=== PATIENT | male | born 1955 | race Caucasian/White ===

== ENCOUNTER 2019-05-31 07:36 | Day surgery (SDC) | payer BC ==
[2019-05-29 11:12] VITALS: BMI 41.0
[~2019-05-31 07:36] MED LIST: LACTATED RINGERS 1,000 ML IV SCH; LIDOCAINE 1% 20 ML VIAL (10MG/ML) FOR IV START INTRADERMA PRN
[2019-05-31 08:18] VITALS: TEMP 97.4
[2019-05-31] MEDS ORDERED: PROPOFOL 10 MG/ML 20 ML VIAL IV ONE (08:52)
--- NOTE | 2019-05-31 09:23 | P.PCN ---
Date of Procedure: 05/31/19 Procedure(s) Performed: BRIEF HISTORY: Patient is a 63-year-old pleasant 8 male, scheduled for an elective colonoscopy as a part of evaluation of intermittent right sided abdominal pain and abnormal CAT scan that showed severe thickening of the cecum as well as a right colon and the terminal ileum . Also performed as positive for colonic mass in the right colon could not be excluded. His and scheduled for colonoscopy to evaluate further. Patient did have a colonoscopy a year ago by and there was a 4 cm soft tissue mass identified and according the patient's biopsies were negative. PROCEDURE PERFORMED: Colonoscopy with snare polypectomy PREOPERATIVE DIAGNOSIS: Follow-up right colonic lesion noted a year ago and abdominal pain. IV sedation per Anesthesia. PROCEDURE: After informed consent was obtained, the patient, was brought into the endoscopy unit. IV sedation was administered by Anesthesia under continuous monitoring. Digital rectal examination was normal. Initially the Olympus CF-160 flexible video colonoscope was then inserted in the rectum, gradually advanced into the cecum without any difficulty. Careful examination was performed as the scope was gradually being withdrawn. Ileocecal valve and the appendiceal orifice were visualized and appeared normal. Prep was excellent. Mucosa of the cecum appeared normal. In the ascending colon just proximal to the ileocecal valve there was a 4 cm polypoid mass identified with smooth margins and appeared more submucosal in nature rather than a mucosal lesion. It was broad-based and part of this was removed by snare polypectomy. Rest of the ascending colon, transverse colon, descending colon, sigmoid colon, and rectum appeared normal. Retroflexion was performed in the rectum and no lesions were seen. The patient tolerated the procedure well. IMPRESSION: 4 cm broad-based smooth polypoid lesion in the ascending colon just proximal to the ileocecal valve suspicious for a submucosal lesion versus polyp , status post partial snare polypectomy (complete polypectomy not done) Rest of the colon appeared normal RECOMMENDATIONS: Findings of this examination were discussed with the patient as well as a family. At this time will await the biopsy results. He'll be seen in office in a week and based on the results will consider if he needs any surgical intervention..
[2019-05-31 09:37] VITALS: BP 123/76; PULSE 58; RESP 20
== END 2019-05-31 10:00 | disposition home or self-care (01) ==
LOC: ORWHC2ENDO 07:36
PROVIDERS: ATTEND Internal Medicine Gastroenterology
DX: C7A.022 Malignant carcinoid tumor of the ascending colon (principal); I10 Essential (primary) hypertension; K21.9 Gastro-esophageal reflux disease without esophagitis; Z87.891 Personal history of nicotine dependence; Z79.899 Other long term (current) drug therapy
CPT/HCPCS: 88305; 88342; 88341; 45385; J2704

== ENCOUNTER → 2019-08-07 | Outpatient (CLI) | payer BC ==
[2019-08-07 11:06] LABS: Basophils % (A) 1 %; Eosinophils # (A) 0.1 k/uL (0-0.7); Eosinophils % (A) 1 %; HCT 47.1 % (39.0-53.0); HGB 15.9 gm/dL (13.0-17.5); Lymphocytes # (A) 1.5 k/uL (1.0-4.8); Lymphocytes % (A) 30 %; MCH 28.7 pg (25.0-35.0); MCHC 33.7 g/dL (31.0-37.0); MCV 85.2 fL (80.0-100.0); Mean Platelet Volume 8.8; Monocytes # (A) 0.3 k/uL (0-1.0); Monocytes % (A) 6 %; Neutrophils % (A) 61 %; Platelet Count 164 k/uL (150-450); RBC 5.53 m/uL (4.30-5.90); RDW 13.6 % (11.5-15.5); WBC 4.9 k/uL (3.8-10.6)
[2019-08-07 15:49] LABS: Anion Gap 7.7 mmol/L (4.00-12.00); Carbon Dioxide 26.3 mmol/L (21.6-31.8); Potassium 4.5 mmol/L (3.5-5.5)
== END | disposition home or self-care (01) ==
LOC: LABWHC1 10:03
PROVIDERS: ATTEND Surgery
DX: Z01.818 Encounter for other preprocedural examination (principal); D3A.029 Benign carcinoid tumor of the large intestine, unspecified portion
CPT/HCPCS: 36415; 80051; 85025; 93005

== ENCOUNTER → 2019-08-10 | Outpatient (CLI) | payer BC | END | disposition home or self-care (01) | LOC: LABWHC1 09:30 | PROVIDERS: ATTEND Surgery | DX: U07.1 COVID-19 (principal) | CPT/HCPCS: 87635 ==

== ENCOUNTER 2023-10-03 15:01 | Inpatient (IN) | payer MEDICARE, OTHER ==
--- NOTE | 2023-10-03 15:27 | ED ---
Chest Pain HPI - General Chief Complaint: Chest Pain Stated Complaint: Chest Pain,sob Time Seen by Provider: 10/03/23 15:05 Source: patient Mode of arrival: wheelchair Limitations: no limitations - History of Present Illness Initial Comments: 68-year-old male presents emergency department reporting chest pain. Describes it as a pressure in his chest, 5 out of 10. It started on Monday. States he was outside moving a feed block for deer when he had sudden onset of 10 out of 10 pain. States it made him feel short of breath. Patient states he rested for several hours afterwards and symptoms did not improve. [place] of going to the hospital up there he decided to come home. He has no history of cardiac disease. Denies lower extremity swelling. No calf pain. Denies history of DVT or PE. He does have history of hypertension, hyperlipidemia and diabetes. He denies having any type of cardiac workup in the past. No fevers, chills or cough. No other alleviating, precipitating or modifying factors - Related Data Home Medications Medication Instructions Recorded Confirmed Losartan Potassium 100 mg PO DAILY 05/29/19 10/03/23 Omeprazole 20 mg PO DAILY 05/29/19 10/03/23 atenoloL [Tenormin] 50 mg PO DAILY 05/29/19 10/03/23 Cholecalciferol [Vitamin D3 (25 25 mcg PO DAILY 10/03/23 10/03/23 Mcg = 1000 Iu)] Citalopram Hydrobromide 10 mg PO DAILY 10/03/23 10/03/23 [Citalopram HBr] Previous Rx's Medication Instructions Recorded Apixaban [Eliquis Starter Pack 5 - 10 mg PO DIRECTED 30 Days 10/06/23 (for VTE)] #1 each Aspirin 81 mg PO DAILY #30 tab 10/06/23 Atorvastatin [Lipitor] 40 mg PO HS #30 tab 10/06/23 amLODIPine [Norvasc] 10 mg PO HS #30 tab 10/06/23 Allergies Allergy/AdvReac Type Severity Reaction Status Date / Time No Known Allergies Allergy Verified 10/03/23 16:56 Review of Systems ROS Statement: Those systems with pertinent positive or pertinent negative responses have been documented in the HPI. ROS Other: All systems not noted in ROS Statement are negative. Past Medical History Past Medical History: Cancer, GERD/Reflux, Hypertension Additional Past Medical History / Comment(s): Colon Cancer currently, occ abd pain @ umbilicus. History of Any Multi-Drug Resistant Organisms: None Reported Past Surgical History: Hernia Repair, Orthopedic Surgery Additional Past Surgical History / Comment(s): RT KNEE SX. Lt shoulder. Rt ing Hernia. COLONOSCOPY/EGD Past Anesthesia/Blood Transfusion Reactions: No Reported Reaction Past Psychological History: No Psychological Hx Reported Smoking Status: Never smoker Past Alcohol Use History: Occasional Past Drug Use History: None Reported - Past Family History Mother Family Medical History: No Reported History General Exam Limitations: no limitations General appearance: alert, in no apparent distress Head exam: Present: atraumatic, normocephalic, normal inspection Eye exam: Present: normal appearance, PERRL, EOMI. Absent: scleral icterus, conjunctival injection, periorbital swelling ENT exam: Present: normal exam, mucous membranes moist Neck exam: Present: normal inspection. Absent: tenderness, meningismus, lymphadenopathy Respiratory exam: Present: normal lung sounds bilaterally. Absent: respiratory distress, wheezes, rales, rhonchi, stridor Cardiovascular Exam: Present: regular rate, normal rhythm, normal heart sounds. Absent: systolic murmur, diastolic murmur, rubs, gallop, clicks GI/Abdominal exam: Present: soft, normal bowel sounds. Absent: distended, tenderness, guarding, rebound, rigid Extremities exam: Present: normal inspection, full ROM, normal capillary refill. Absent: tenderness, pedal edema, joint swelling, calf tenderness Back exam: Present: normal inspection Neurological exam: Present: alert, oriented X3, CN II-XII intact Psychiatric exam: Present: normal affect, normal mood Skin exam: Present: warm, dry, intact, normal color. Absent: rash Course Vital Signs 10/03/23 10/03/23 10/03/23 15:02 15:12 16:00 Temperature 97.9 F Pulse Rate 90 80 76 Pulse Rate [ Pulse Oximetery ] Respiratory 18 18 Rate Blood Pressure 198/142 206/141 168/132 Blood Pressure [Right Arm] O2 Sat by Pulse 94 L 97 93 L Oximetry 10/03/23 10/03/23 10/03/23 17:00 18:00 19:00 Temperature Pulse Rate 77 75 76 Pulse Rate [ Pulse Oximetery ] Respiratory Rate Blood Pressure 162/117 134/105 155/125 Blood Pressure [Right Arm] O2 Sat by Pulse 92 L 94 L 94 L Oximetry 10/03/23 10/03/23 10/04/23 19:41 21:00 02:14 Temperature Pulse Rate 74 86 74 Pulse Rate [ Pulse Oximetery ] Respiratory 18 20 18 Rate Blood Pressure 156/117 148/110 139/99 Blood Pressure [Right Arm] O2 Sat by Pulse 93 L 95 93 L Oximetry 10/04/23 10/04/23 10/04/23 05:58 07:34 11:13 Temperature 97.4 F L Pulse Rate 71 Pulse Rate [ 73 71 Pulse Oximetery ] Respiratory 18 18 19 Rate Blood Pressure 122/86 Blood Pressure 165/113 139/121 [Right Arm] O2 Sat by Pulse 94 L 97 96 Oximetry 10/04/23 14:51 Temperature Pulse Rate Pulse Rate [ 72 Pulse Oximetery ] Respiratory 18 Rate Blood Pressure Blood Pressure 149/114 [Right Arm] O2 Sat by Pulse 97 Oximetry Chest Pain MDM - MDM Was pt. sent in by a medical professional or institution (Dr. PA, DIS[facility]OCKEY, urgent care, hospital, or prison...) When possible be specific @ -No Did you speak to anyone other than the patient for history (EMS, parent, family, police, friend...)? What history was obtained from this source @ -Spoke with patient's Did you review nursing and triage notes (agree or disagree)? Why? @ -I reviewed and agree with nursing and triage notes Were old charts reviewed (outside hosp., previous admission, EMS record, old EKG, old radiological studies, urgent care reports/EKG's, prison records)? Report findings @ -No old charts were reviewed Differential Diagnosis (chest pain, altered mental status, abdominal pain women, abdominal pain men, vaginal bleeding, weakness, fever, dyspnea, syncope, headache, dizziness, GI bleed, back pain, seizure, CVA, palpatations, mental health, musculoskeletal)? @ -Differential Chest Pain: Stable Angina, Unstable Angina, STEMI, NSTEMI Aortic Dissection, Pneumothorax, Musculoskeletal, Esophageal Spasm GERD, Cholecystitis, Pancreatitis, Zoster, this is not meant to be an all-inclusive list. EKG interpreted by me (3pts min.). @ -Yes and demonstrates sinus rhythm with a rate of 78. VT interval 181. QRS 98. QTc of 460. No acute ST segment elevation. Biphasic T wave in V2 and V3. Q waves in the inferior leads. X-rays interpreted by me (1pt min.). @ -Yes and demonstrates no acute process CT interpreted by me (1pt min.). @ -None done U/S interpreted by me (1pt. min.). @ -None done What testing was considered but not performed or refused? (CT, X-rays, U/S, labs)? Why? @ -CT was considered however will hold off as patient may have received arterial contrast from heart cath What meds were considered but not given or refused? Why? @ -None Did you discuss the management of the patient with other professionals (professionals i.e. , PA, [employer] [facility], lab, RT, psych nurse, director social, biomedical equipment specialist, teacher, chief security officer, case investigator)? Give summary @ -Spoke with Dr. Nagy Was smoking cessation discussed for >3mins.? @ -No Was critical care preformed (if so, how long)? @ -Yes, 45 minutes Were there social determinants of health that impacted care today? How? (Homelessness, low income, unemployed, alcoholism, drug addiction, transportation, low edu. Level, literacy, decrease access to med. care, skilled nursing, rehab)? @ -No Was there de-escalation of care discussed even if they declined (Discuss DNR or withdrawal of care, Hospice)? DNR status @ -No What co-morbidities impacted this encounter? (DM, HTN, Smoking, COPD, CAD, Cancer, CVA, ARF, Chemo, Hep., AIDS, mental health diagnosis, sleep apnea, morbid obesity)? @ -Hypertension, hyperlipidemia, diabetes Was patient admitted / discharged? Hospital course, mention meds given and route, prescriptions, significant lab abnormalities, going to OR and other pertinent info. @ -Upon arrival patient seen and evaluated in room 18. Thorough history and physical exam was performed. IV was established. Laboratory studies were conducted. Chest x-ray was performed. Patient does have elevated troponin. He is heparinized. Called and spoke with cardiology. Patient will be admitted to Dr. York who accepts admission Undiagnosed new problem with uncertain prognosis? @ -No Drug Therapy requiring intensive monitoring for toxicity (Heparin, Nitro, Insulin, Cardizem)? @ -Heparin Were any procedures done? @ -No Diagnosis/symptom? @ -Acute chest pain, NSTEMI Acute, or Chronic, or Acute on Chronic? @ -Acute Uncomplicated (without systemic symptoms) or Complicated (systemic symptoms)? @ -Complicated Side effects of treatment? @ -No Exacerbation, Progression, or Severe Exacerbation? @ -No Poses a threat to life or bodily function? How? (Chest pain, USA, ND, pneumonia, PE, COPD, DKA, ARF, appy, cholecystitis, CVA, Diverticulitis, Homicidal, Suicidal, threat to staff... and all critical care pts) @ -Yes as patient has elevated troponin Disposition Clinical Impression: Chest pain, Exertional dyspnea, Acute non-ST elevation myocardial infarction (NSTEMI) Disposition: ADMITTED IP TO THIS HOSP Is patient prescribed a controlled substance at d/c from ED?: No Time of Disposition: 17:19 Decision to Admit Reason: Admit from EC Decision Date: 10/03/23 Decision Time: 17:19
[2023-10-03 15:47] LABS: Basophils # (A) 0.1 k/uL (0-0.2); Basophils % (A) 1 %; Eosinophils # (A) 0.1 k/uL (0-0.7); Eosinophils % (A) 1 %; HGB 18.9 gm/dL (13.0-17.5); Lymphocytes % (A) 22 %; MCHC 32.9 g/dL (31.0-37.0); Mean Platelet Volume 10.1; Monocytes # (A) 0.7 k/uL (0-1.0); Monocytes % (A) 5 %; Neutrophils # (A) 9.6 k/uL (1.3-7.7); Neutrophils % (A) 70 %; Platelet Count 175 k/uL (150-450); RBC 6.77 m/uL (4.30-5.90); RDW 13.7 % (11.5-15.5); WBC 13.7 k/uL (3.8-10.6)
--- NOTE | 2023-10-03 15:58 | XR ---
EXAMINATION TYPE: XR chest 2V DATE OF EXAM: 10/03/2023 COMPARISON: NONE HISTORY: Shortness of breath TECHNIQUE: Frontal and lateral views of the chest are obtained. FINDINGS: Scattered senescent parenchymal changes noted. No evidence for infiltrate. No evidence for atelectasis. Heart size is stable. Mediastinal structures are stable and grossly unremarkable. No evidence for hilar prominence. Degenerative changes dorsal spine. IMPRESSION: 1. No evidence for acute pulmonary disease.
[2023-10-03 16:02] LABS: HCT 57.5 % (39.0-53.0)
[2023-10-03 16:07] LABS: Partial Thromboplastin Time 23.5 sec (22.0-30.0)
[2023-10-03 16:13] LABS: NT-Pro-B-Type Natriuretic Pept 4470 pg/mL
[2023-10-03] MEDS: NITROGLYCERIN SL TABS 0.4 MG TAB SUBLINGUAL STA (16:46)
[2023-10-03] MEDS: ASPIRIN 81 MG PO STA (16:47)
[2023-10-03 17:06] LABS: ALT 32 U/L (4-49); African American GFR (CKD) 71 (>60 ml/min/1.73 sqM); Albumin 5.2 g/dL (3.5-5.0); Anion Gap 15 mmol/L; Blood Urea Nitrogen 18 mg/dL (9-20); Calcium 9.7 mg/dL (8.4-10.2); Carbon Dioxide 14 mmol/L (22-30); Chloride 109 mmol/L (98-107); Glucose 118 mg/dL (74-99); Non-African American GFR(CKD) 61 (>60 ml/min/1.73 sqM); Sodium 138 mmol/L (137-145); Total Protein 9.4 g/dL (6.3-8.2)
[2023-10-03 17:17] LABS: Potassium 5.8 mmol/L (3.5-5.1)
[2023-10-03 17:18] LABS: AST 66 U/L (17-59); Alkaline Phosphatase 116 U/L (38-126); Total Bilirubin 2.1 mg/dL (0.2-1.3)
[2023-10-03] MEDS ORDERED: MORPHINE SULFATE 4 MG/ML SYRINGE IV PRN (17:31)
[2023-10-03] MEDS ORDERED: NALOXONE 0.4 MG/ML 1 ML VIAL IV PRN (17:31)
[2023-10-03] MEDS ORDERED: hydrALAZINE HCL 25 MG TAB PO PRN (17:34)
[2023-10-03] MEDS: HEPARIN SODIUM 1,000 UN/ML (10ML VL) IV ONE (18:43)
[2023-10-03] MEDS: amLODIPine 10 MG TAB PO SCH (18:44)
[2023-10-03] MEDS: HEPARIN SOD,PORK IN 0.45% NACL 25,000 UNIT in 0.45% NACL 1 250ML.BAG IV SCH (18:44)
[2023-10-03] MEDS: NITROGLYCERIN-D5W PMX 50 MG in DEXTROSE/WATER 1 250ML.BAG IV ONE (19:00)
[2023-10-04] MEDS: HEPARIN SODIUM 1,000 UN/ML (10ML VL) IV PRN (02:12)
[2023-10-04] MEDS: atenoloL 50 MG TAB PO SCH (09:23)
[2023-10-04] MEDS: hydroCHLOROthiazide 25 MG TAB PO SCH (09:23)
[2023-10-04] MEDS: LOSARTAN 50 MG TAB PO SCH (09:23)
[2023-10-04] MEDS: NITROGLYCERIN OINT 1 INCH/GM PACKET TOPICAL SCH (09:23)
[2023-10-04] MEDS: ASPIRIN 81 MG PO SCH (09:23)
[2023-10-04 09:43] LABS: Basophils # (A) 0.1 k/uL (0-0.2); Basophils % (A) 0 %; Eosinophils # (A) 0.1 k/uL (0-0.7); Eosinophils % (A) 0 %; HCT 49.7 % (39.0-53.0); HGB 16.8 gm/dL (13.0-17.5); Lymphocytes # (A) 2.5 k/uL (1.0-4.8); Lymphocytes % (A) 24 %; MCH 28.1 pg (25.0-35.0); MCHC 33.8 g/dL (31.0-37.0); MCV 83.1 fL (80.0-100.0); Mean Platelet Volume 10.4; Monocytes # (A) 0.6 k/uL (0-1.0); Monocytes % (A) 6 %; Neutrophils # (A) 7.1 k/uL (1.3-7.7); Neutrophils % (A) 68 %; Platelet Count 148 k/uL (150-450); RBC 5.98 m/uL (4.30-5.90); RDW 13.3 % (11.5-15.5); WBC 10.5 k/uL (3.8-10.6)
[2023-10-04 09:52] LABS: African American GFR (CKD) 62 (>60 ml/min/1.73 sqM); Anion Gap 9 mmol/L; Blood Urea Nitrogen 21 mg/dL (9-20); Calcium 9.5 mg/dL (8.4-10.2); Carbon Dioxide 23 mmol/L (22-30); Chloride 108 mmol/L (98-107); Glucose 118 mg/dL (74-99); Non-African American GFR(CKD) 54 (>60 ml/min/1.73 sqM); Potassium 4.3 mmol/L (3.5-5.1); Sodium 140 mmol/L (137-145)
[2023-10-04 09:56] LABS: Partial Thromboplastin Time 33.2 sec (22.0-30.0); Prothrombin Time 11.2 sec (10.0-12.5)
[2023-10-04] MEDS: ACETAMINOPHEN TAB 500 MG TAB PO PRN (10:03)
[2023-10-04] MEDS: PANTOPRAZOLE 40 MG TABLET PO SCH (11:14)
[2023-10-04] MEDS: CHOLECALCIFEROL 25 MCG (1000 IU) TABLET PO SCH (11:14)
[2023-10-04] MEDS: CITALOPRAM HYDROBROMIDE 10 MG TAB PO SCH (11:14)
--- NOTE | 2023-10-04 12:04 | P.CRDCN ---
History of Present Illness History of present illness: HISTORY OF PRESENT ILLNESS: This is a 68-year-old male with a past medical history significant for obesity, GERD, and hypertension. Patient does not follow with a special delivery worker. We have be en asked to see the patient in consultation for chest pain and non-STEMI. Patient examined at the bedside in the emergency room. Patient states on Monday he was carrying a 40 pound block when he suddenly lost his breath and had to sit down. He states it took him approximately 1 hour to recover and since that time he has been very short of breath. He states on Monday he did not do much at all and just sat around due to his shortness of breath. He reports having mild chest discomfort as well. He continues to be short of breath at the time of examination. He is a non-smoker. He reports occasional alcohol use. He states he has a family history of CAD. His mother had a heart attack when she was in her 40s. Denies any history on his dad side. He does report a high salt intake diet at home. He also reports having occasional spikes in his blood pressure at home. Patient's blood pressure was significantly elevated upon admission to the hospital with a reading of 198/142. DIAGNOSTICS: - EKG reveals sinus mechanism with T wave inversions in lead V2V3 - Chest xray negative for acute process - Laboratory data: WBC 10.5. Hemoglobin 16.8. Platelet count 148. D-dimer 8.89. Sodium 140. Potassium 4.3. BUN 21. Creatinine 1.36. Troponin 0.104. 0.104. 0.097. proBNP 4470. - Current home cardiac medications include atenolol 50 mg daily and losartan 100 mg daily. REVIEW OF SYSTEMS: At the time of my exam: CONSTITUTIONAL: Denies fever or chills. HEENT: Denies blurred vision, vision changes, or eye pain. Denies hemoptysis CARDIOVASCULAR: Denies chest pain. Denies orthopnea. Denies PND. Denies palpitations RESPIRATORY: Denies shortness of breath. GASTROINTESTINAL: Denies abdominal pain. Denies nausea or vomiting. HEMATOLOGIC: Denies bleeding disorders. GENITOURINARY: Denies any blood in urine. SKIN: Denies pruitis. Denies rash. PHYSICAL EXAM: VITAL SIGNS: Reviewed. GENERAL: Well-developed in no acute distress. HEENT: Head is normocephalic. Pupils are equal, round. Sclerae anicteric. Mucous membranes of the mouth are moist. Neck supple. No JVD or thyromegaly LUNGS: Respirations even and unlabored. Lungs essentially clear to auscultation bilaterally. HEART: Regular rate and rhythm. S1 and S2 heard. ABDOMEN: Soft. Nondistended. Nontender. EXTREMITIES: Normal range of motion. No clubbing or cyanosis. Peripheral pulses intact. No lower extremity edema NEUROLOGIC: Awake and alert. Oriented x 3. ASSESSMENT: Shortness of breath x 1 week with sudden onset Non-STEMI, type I versus type II due to oxygen supply and demand mismatch due to possible pulmonary embolism, CTA pending Hypertensive emergency GERD Obesity: BMI 39.6 PLAN: Obtain 2D echo to assess cardiac structure and function Resume home cardiac medications Continue IV heparin Discontinue IV nitro. Begin Nitropaste 1 inch every 8 hours Add aspirin 81 mg daily and atorvastatin 40 mg at night. Lipid panel pending. Add hydrochlorothiazide 25 mg daily Continue to monitor blood pressures. Patient educated on low-sodium diet. Patient symptoms are concerning for pulmonary embolism. D-dimer elevated 8.9. Patient to undergo CTA to evaluate for PE If CTA is negative for pulmonary embolism, patient will undergo cardiac catheterization with Dr. Melendez Further recommendations pending patient course Nurse practitioner note has been reviewed by physician. Signing provider agrees with the documented findings, assessment, and plan of care documented by BUILDING PRESSURE WASHER as a scribe. Past Medical History Past Medical History: Cancer, GERD/Reflux, Hypertension Additional Past Medical History / Comment(s): Colon Cancer currently, occ abd pain @ umbilicus. History of Any Multi-Drug Resistant Organisms: None Reported Past Surgical History: Hernia Repair, Orthopedic Surgery Additional Past Surgical History / Comment(s): RT KNEE SX. Lt shoulder. Rt ing Hernia. COLONOSCOPY/EGD Past Anesthesia/Blood Transfusion Reactions: No Reported Reaction Past Psychological History: No Psychological Hx Reported Smoking Status: Never smoker Past Alcohol Use History: Occasional Past Drug Use History: None Reported - Past Family History Mother Family Medical History: No Reported History Medications and Allergies Home Medications Medication Instructions Recorded Confirmed Type Losartan Potassium 100 mg PO DAILY 05/29/19 10/03/23 History Omeprazole 20 mg PO DAILY 05/29/19 10/03/23 History atenoloL [Tenormin] 50 mg PO DAILY 05/29/19 10/03/23 History Cholecalciferol [Vitamin D3 (25 25 mcg PO DAILY 10/03/23 10/03/23 History Mcg = 1000 Iu)] Citalopram Hydrobromide 10 mg PO DAILY 10/03/23 10/03/23 History [Citalopram HBr] Allergies Allergy/AdvReac Type Severity Reaction Status Date / Time No Known Allergies Allergy Verified 10/03/23 16:56 Physical Exam Vitals: Vital Signs Temp Pulse Pulse Resp BP BP Pulse Ox 10/04/23 07:34 97.4 F L 73 18 165/113 97 10/04/23 05:58 71 18 122/86 94 L 10/04/23 02:14 74 18 139/99 93 L 10/03/23 21:00 86 20 148/110 95 10/03/23 19:41 74 18 156/117 93 L 10/03/23 19:00 76 155/125 94 L 10/03/23 18:00 75 134/105 94 L 10/03/23 17:00 77 162/117 92 L 10/03/23 16:00 76 168/132 93 L 10/03/23 15:12 80 18 206/141 97 10/03/23 15:02 97.9 F 90 18 198/142 94 L Intake and Output 10/03/23 10/04/23 10/04/23 22:59 06:59 14:59 Intake Total 74.833 Balance 74.833 Intake: Intake, IV Titration 74.833 Amount Heparin Sod,Pork in 0.45% 74.833 NaCl 25,000 unit In 0.45 % NaCl 1 250ml.bag @ 7. 3487 UNITS/KG/HR 10 mls/ hr IV .Q24H [facility] [place] Rx#: [id number] Other: Weight 136.078 kg Results 10/04/23 09:27 10/04/23 09:27 Cardiac Enzymes 10/03/23 10/03/23 10/03/23 Range/Units 15:29 15:29 18:06 AST 66 H (17-59) U/L Troponin I 0.104 H* 0.104 H* (0.000-0.034) ng/mL 10/03/23 Range/Units 20:40 AST (17-59) U/L Troponin I 0.097 H* (0.000-0.034) ng/mL Coagulation 10/03/23 10/04/23 Range/Units 15:29 00:48 PT 11.0 (10.0-12.5) sec APTT 23.5 28.7 (22.0-30.0) sec CBC 10/03/23 Range/Units 15:29 WBC 13.7 H (3.8-10.6) k/uL RBC 6.77 H (4.30-5.90) m/uL Hgb 18.9 H (13.0-17.5) gm/dL Hct 57.5 H* (39.0-53.0) % Plt Count 175 (150-450) k/uL Comprehensive Metabolic Panel 10/03/23 Range/Units 15:29 Sodium 138 (137-145) mmol/L Potassium 5.8 H (3.5-5.1) mmol/L Chloride 109 H (98-107) mmol/L Carbon Dioxide 14 L (22-30) mmol/L BUN 18 (9-20) mg/dL Creatinine 1.23 (0.66-1.25) mg/dL Glucose 118 H (74-99) mg/dL Calcium 9.7 (8.4-10.2) mg/dL AST 66 H (17-59) U/L ALT 32 (4-49) U/L Alkaline Phosphatase 116 (38-126) U/L Total Protein 9.4 H (6.3-8.2) g/dL Albumin 5.2 H (3.5-5.0) g/dL Current Medications Generic Name Dose Route Start Last Admin Trade Name Sofia PRN Reason Stop Dose Admin Amlodipine Besylate 10 mg 10/03/23 17:45 10/04/23 07:38 Amlodipine 10 Mg Tab PO 10 mg DAILY ROSANGELA Administration Heparin Sodium (Porcine) 0 unit 10/03/23 17:23 10/04/23 02:12 Heparin Sodium 1,000 Un/Ml (10ml Vl) IV 6,800 unit PER PROTOCOL PRN Administration Low PTT Protocol Hydralazine HCl 25 mg 10/03/23 17:34 Hydralazine Hcl 25 Mg Tab PO TID PRN Blood Pressure - High Heparin Sodium/Sodium Chloride 250 mls @ 10 mls/hr 10/03/23 17:30 10/04/23 02:13 25,000 unit/ Sodium Chloride IV 10.348 units/kg/hr .Q24H ROSANGELA 14.081 mls/hr Titration Protocol 7.3487 UNITS/KG/HR Nitroglycerin/Dextrose 50 mg/ 250 mls @ 1.5 mls/hr 10/03/23 17:31 10/03/23 19:00 IV Solution IV 10/04/23 17:30 5 mcg/min .Q24H ONE 1.5 mls/hr Administration 5 MCG/MIN Morphine Sulfate 4 mg 10/03/23 17:31 Morphine Sulfate 4 Mg/Ml Syringe IV Q4HR PRN Severe Pain (Scale 7 to 10) Naloxone HCl 0.2 mg 10/03/23 17:31 Naloxone 0.4 Mg/Ml 1 Ml Vial IV Q2M PRN Opioid Reversal Intake and Output 10/03/23 10/04/23 10/04/23 22:59 06:59 14:59 Intake Total 74.833 Balance 74.833 Intake: Intake, IV Titration 74.833 Amount Heparin Sod,Pork in 0.45% 74.833 NaCl 25,000 unit In 0.45 % NaCl 1 250ml.bag @ 7. 3487 UNITS/KG/HR 10 mls/ hr IV .Q24H [facility] [place] Rx#: [id number] Other: Weight 136.078 kg 10/03/23 15:29 10/03/23 15:29
--- NOTE | 2023-10-04 12:25 | CA ---
Transthoracic Echo Report Name: Kuldeep Luis Age: 68 Gender: M : 1955 Exam Date: 10/04/2023 08:31 Exam Location: [facility] Ht (in): 73 Wt (lb): 300 Ordering Physician: Melina Valenzuela DO Attending/Referring Phys: [id number], Bianca Junk Dealer Karlene Carey, [facility] Procedure CPT: Indications: nstemi Cardiac Hx: Technical Quality: Technically difficult study Contrast 1: Definity Total Dose (mL): 2 Contrast 2: Total Dose (mL): MEASUREMENTS (Male / Female) Normal Values 2D ECHO LV Diastolic Diameter PLAX 2.8 cm 4.2 - 5.9 / 3.9 - 5.3 cm LV Systolic Diameter PLAX 2.3 cm IVS Diastolic Thickness 1.8 cm 0.6 - 1.0 / 0.6 - 0.9 cm LVPW Diastolic Thickness 2.0 cm 0.6 - 1.0 / 0.6 - 0.9 cm LV Relative Wall Thickness 1.3 RV Internal Dim ED PLAX 3.2 cm LA Systolic Diameter LX 3.6 cm 3.0 - 4.0 / 2.7 - 3.8 cm LV Diastolic Volume MOD 4C 55.8 cm??? LV Systolic Volume MOD 4C 24.1 cm??? LV Ejection Fraction MOD 4C 56.9 % LV Cardiac Index MOD 4C 928.6 cm???/min???m??? LV Diastolic Length 4C 8.3 cm LV Systolic Length 4C 7.6 cm M-MODE Aortic Root Diameter MM 3.2 cm LA Systolic Diameter MM 3.9 cm LA Ao Ratio MM 1.2 AV Cusp Separation MM 2.1 cm DOPPLER AV Peak Velocity 144.3 cm/s AV Peak Gradient 8.3 mmHg Mitral E Point Velocity 57.4 cm/s Mitral A Point Velocity 96.3 cm/s Mitral E to A Ratio 0.6 MV Deceleration Time 334.6 ms MV E' Velocity 7.6 cm/s Mitral E to MV E' Ratio 7.5 TR Peak Velocity 358.2 cm/s TR Peak Gradient 51.3 mmHg Right Ventricular Systolic Press 61.4 mmHg FINDINGS Left Ventricle Left ventricular ejection fraction is estimated at 60-65%. Severely increased septal wall thickness. Severe concentric left ventricular hypertrophy. No obvious regional wall motion abnormalities. Left ventricular cavity size normal. No evidence of LV thrombus on contrast imaging Right Ventricle Severe right ventricular dilatation.moderately reduced right ventricular global systolic function. Severe pulmonary hypertension. Right ventricular systolic pressure estimated at 60 mmHg. Right Atrium Mild right atrial dilatation. Left Atrium Normal left atrial size. Mitral Valve Structurally normal mitral valve. Trace to mild mitral regurgitation. Aortic Valve Trileaflet aortic valve. No aortic stenosis. No aortic regurgitation. Tricuspid Valve Structurally normal tricuspid valve. Moderate tricuspid regurgitation. No tricuspid stenosis. Pulmonic Valve Structurally normal pulmonic valve. Trace pulmonic regurgitation. No pulmonic stenosis. Pericardium No thickening/calcification of the pericardium. Aorta Normal size aortic root and proximal ascending aorta. CONCLUSIONS LVEF 60 to 65% Normal LV cavity size. Severe concentric LVH. No obvious LVOT obstruction No obvious regional wall motion abnormality Severely dilated RV with moderately reduced systolic function. Pulmonary hypertension with RVSP 60 mmHg Moderate tricuspid regurgitation. Previewed by: Dr Fady Sim (Electronically Signed) Final Date: 04 October 2023 12:25
--- NOTE | 2023-10-04 15:09 | CT ---
EXAMINATION TYPE: CT angio chest DATE OF EXAM: 10/04/2023 COMPARISON: Radiographs 10/03/2023 HISTORY: 68-year-old male shortness of breath, elevated d-dimer, r/o PE TECHNIQUE: Contiguous axial scanning of the chest after the administration of 80ml mL of Isovue 370. Coronal/sagittal MIP reconstructions performed. CT DLP: 1011.7mGycm. Automatic exposure control utilized for a dose reduction. FINDINGS: The heart is borderline enlarged. Trace pericardial fluid. There is flattening of the interventricula r septum and minimal refluxing contrast into the hepatic IVC. Ectatic ascending aorta 3.9 cm. In the chart. Branching anatomy. No thoracic lymph adenopathy by CT size criteria. Large caliber to the main right and left pulmonary arteries measuring up to 3.1 cm. There is large cl ot burden involving the bilateral distal main pulmonary arteries and extending variably through the l obar and segmental branches on both sides. Mild diffuse bronchial wall thickening which can be seen with bronchitis or asthma. No consolidation or pleural effusion. Visualized upper abdomen shows a 2.5 cm cortical cyst posterior right kidney. Bones: Mild degenerative disc disease mid to lower thoracic spine. IMPRESSION: 1. Exam positive for bilateral pulmonary emboli, fairly heavy burden extending throughout the distal aspect of the main pulmonary arteries and variably throughout the lobar and segmental branches on bot h sides. 2. Findings concerning for early right heart strain. Critical findings called to ER nurse Daphney at 3:05pm.
[2023-10-04] MEDS: HEPARIN SOD,PORK IN 0.45% NACL 25,000 UNIT in 0.45% NACL 1 250ML.BAG IV SCH ×3 (15:25→17:54)
[2023-10-04 15:55] LABS: Basophils # (A) 0.1 k/uL (0-0.2); Basophils % (A) 1 %; Eosinophils % (A) 0 %; HCT 51.1 % (39.0-53.0); HGB 16.5 gm/dL (13.0-17.5); Lymphocytes # (A) 2.5 k/uL (1.0-4.8); Lymphocytes % (A) 24 %; MCH 28.1 pg (25.0-35.0); MCHC 32.4 g/dL (31.0-37.0); MCV 86.6 fL (80.0-100.0); Mean Platelet Volume 9.5; Monocytes # (A) 0.6 k/uL (0-1.0); Monocytes % (A) 6 %; Neutrophils # (A) 6.9 k/uL (1.3-7.7); Neutrophils % (A) 67 %; Platelet Count 151 k/uL (150-450); RBC 5.89 m/uL (4.30-5.90); RDW 13.6 % (11.5-15.5); WBC 10.2 k/uL (3.8-10.6)
--- NOTE | 2023-10-04 15:58 | US ---
EXAMINATION TYPE: US venous doppler duplex LE DATE OF EXAM: 10/04/2023 3:22 PM COMPARISON: NONE CLINICAL INDICATION: Male, 68 years old with history of rule out DVT; BL LE leg pain, left worse that right. JASSON SIDE PERFORMED: Bilateral TECHNIQUE: The lower extremity deep venous system is examined utilizing real time linear array sonog lisa with graded compression, doppler sonography and color-flow sonography. VESSELS IMAGED: Common Femoral Vein Deep Femoral Vein Greater Saphenous Vein * Femoral Vein Popliteal Vein Small Saphenous Vein * Proximal Calf Veins (* superficial vessels) Right Leg: Negative for DVT Left Leg: DVT left popliteal extending into the proximal calf veins IMPRESSION: 1. Deep vein thrombosis within the left popliteal vein extending into the calf veins. 2. No evidence for deep vein thrombosis of the right lower extremity. Findings communicated to Dr. Oleg Melendez on 10/04/2023 3:[address] Khai Alexis.
[2023-10-04] MEDS ORDERED: fentaNYL (PF) 50 MCG/ML 2 ML AMP ONE (16:11)
[2023-10-04] MEDS: fentaNYL (PF) 50 MCG/1 ML VIAL IVP ONE (16:17)
[2023-10-04] MEDS: SODIUM CHLORIDE 0.9% 1,000 ML IV ONE (16:17)
[2023-10-04] MEDS: MIDAZOLAM 2 MG/2 ML VIAL IVP ONE (16:17)
[2023-10-04] MEDS: LIDOCAINE 1% INJ 10MG/ML (20 ML MDV) SQ ONE (16:18)
[2023-10-04 16:28] LABS: Partial Thromboplastin Time 47.6 sec (22.0-30.0); Prothrombin Time 11.3 sec (10.0-12.5)
[2023-10-04 16:41] LABS: African American GFR (CKD) 61 (>60 ml/min/1.73 sqM); Anion Gap 7 mmol/L; Blood Urea Nitrogen 21 mg/dL (9-20); Calcium 9.7 mg/dL (8.4-10.2); Carbon Dioxide 26 mmol/L (22-30); Chloride 105 mmol/L (98-107); Glucose 111 mg/dL (74-99); Non-African American GFR(CKD) 53 (>60 ml/min/1.73 sqM); Potassium 4.5 mmol/L (3.5-5.1); Sodium 138 mmol/L (137-145)
--- NOTE | 2023-10-04 17:02 | P.HPIM ---
History of Present Illness H&P Date: 10/04/23 Chief Complaint: Short of breath This is a pleasant 68-year-old patient, follows with Dr. Daja Trinh. Chronic stable medical condition include hypertension, GERD, anxiety, history of colon cancer with right colon removed several years ago. 4 days ago that is on Monday patient noticed that he is became rather short of breath. Some chest discomfort. He pretty much stayed at home all day. Next day he can have just took it easy. Patient was out of town. Finally decided to come down to the ER yesterday driving down here.. Patient's both the legs have been having discomfort for last few days. And about a month ago there is an episode of rather short of breath while patient was in [place] and he thought this was heat. Patient is accompanied by his at the bedside. Patient had some troponin leak. CT scan chest pending. Review of systems: GEN.: Tired EYES: None HEENT: None NECK: None RESPIRATORY: As above] CARDIOVASCULAR: [As above GASTROINTESTINAL: None GENITOURINARY: None MUSCULOSKELETAL: None LYMPHATICS: None HEMATOLOGICAL: None PSYCHIATRY: None NEUROLOGICAL: None Social history: Patient retired. Smoked for about 10 years stopped about 30 years ago. . Physical examination: VITAL SIGNS: 97.4, 73, 18, 165/113, 97% on 2 L GENERAL: BMI 39.6, reclining bed awake slightly tired. EYES: Pupils equal. Conjunctiva prakash l. HEENT: External appearance of nose and ears normal, oral cavity grossly normal. NECK: JVD not raised; masses not palpable. HEART: First and second heart sounds are normal; no edema. LUNGS: Respiratory rate normal; clear to auscultation. ABDOMEN: Soft, nontender, liver spleen not palpable, no masses palpable. PSYCH: Alert and oriented x3; mood and affect prakash l. MUSCULOSKELETAL:No Clubbing/cyanosis;muscles-grossly intact NEUROLOGICAL: Cranial nerves grossly intact; no facial asymmetry, power and sensation grossly intact. LYMPHATICS: No lymph nodes palpable in the axilla and neck INVESTIGATIONS, reviewed in the clinical context: 2D echocardiogram: EF 60-65%. Severely increased septal wall thickness. Severe concentric LVH. Severe right ventricle dilatation severe pulmonary hypertension moderate tricuspid regurgitation October 03: White count 10.2 hemoglobin 16.5 platelets 151 sodium 138 potassium 4.5 BUN 21 creatinine 1.38 October 02: White count 3.7 hemoglobin 18.9 platelets 175 potassium 5.8 BUN 18 creatinine 1.23 Troponin I 0.104, 0.104, 0.097 proBNP 4490 EKG tracing personally reviewed by me-normal sinus rhythm. 7T wave changes. And ST segment changes in anterior leads Chest x-ray film personally reviewed by me-cardiomegaly. Some prominent pulmonary artery Assessment and plan: -Patient presents 4 days of sudden onset short of breath and some chest discomfort. The short of breath is rather prominent. Some lower extremity discomfort. Probability of PE is very high. Especially given the 2D echo findings. If that is ruled out then acute coronary syndrome IV heparin monitoring CT chest angio for PE pending -Right ventricular dilatation strain likely from underlying significant PE -IV heparin monitoring Follow PTT -Troponinemia. This could be from a large PE or acute coronary syndrome -Essential hypertension Atenolol 50 mg a day losartan 100 mg a day -GERD Omeprazole 20 mg a day -Anxiety not otherwise specified Celexa 10 mg a day -Obesity BMI 39.6 Weight loss measures Care was discussed with the patient and the at bedside. Questions answered. Await CT chest. Cardiology following Past Medical History Past Medical History: Cancer, GERD/Reflux, Hypertension Additional Past Medical History / Comment(s): Colon Cancer currently, occ abd pain @ umbilicus. History of Any Multi-Drug Resistant Organisms: None Reported Past Surgical History: Hernia Repair, Orthopedic Surgery Additional Past Surgical History / Comment(s): RT KNEE SX. Lt shoulder. Rt ing Hernia. COLONOSCOPY/EGD Past Anesthesia/Blood Transfusion Reactions: No Reported Reaction Past Psychological History: No Psychological Hx Reported Smoking Status: Never smoker Past Alcohol Use History: Occasional Past Drug Use History: None Reported - Past Family History Mother Family Medical History: No Reported History Medications and Allergies Home Medications Medication Instructions Recorded Confirmed Type Losartan Potassium 100 mg PO DAILY 05/29/19 10/03/23 History Omeprazole 20 mg PO DAILY 05/29/19 10/03/23 History atenoloL [Tenormin] 50 mg PO DAILY 05/29/19 10/03/23 History Cholecalciferol [Vitamin D3 (25 25 mcg PO DAILY 10/03/23 10/03/23 History Mcg = 1000 Iu)] Citalopram Hydrobromide 10 mg PO DAILY 10/03/23 10/03/23 History [Citalopram HBr] Allergies Allergy/AdvReac Type Severity Reaction Status Date / Time No Known Allergies Allergy Verified 10/03/23 16:56 Physical Exam Vitals: Vital Signs Temp Pulse Pulse Resp BP BP Pulse Ox 10/04/23 07:34 97.4 F L 73 18 165/113 97 10/04/23 05:58 71 18 122/86 94 L 10/04/23 02:14 74 18 139/99 93 L 10/03/23 21:00 86 20 148/110 95 10/03/23 19:41 74 18 156/117 93 L 10/03/23 19:00 76 155/125 94 L 10/03/23 18:00 75 134/105 94 L 10/03/23 17:00 77 162/117 92 L 10/03/23 16:00 76 168/132 93 L 10/03/23 15:12 80 18 206/141 97 10/03/23 15:02 97.9 F 90 18 198/142 94 L Intake and Output 10/03/23 10/04/23 10/04/23 22:59 06:59 14:59 Intake Total 74.833 134.483 Balance 74.833 134.483 Intake: Intake, IV Titration 74.833 134.483 Amount Heparin Sod,Pork in 0.45% 74.833 112.883 NaCl 25,000 unit In 0.45 % NaCl 1 250ml.bag @ 7. 3487 UNITS/KG/HR 10 mls/ hr IV .Q24H [facility] Rx#: [id number] Nitroglycerin-D5w Pmx 50 21.6 mg In Dextrose/Water 1 250ml.bag @ 5 MCG/MIN 1.5 mls/hr IV .Q24H [facility] Rx#: [id number] Other: Weight 136.078 kg Results CBC & Chem 7: 10/04/23 15:41 10/04/23 15:41 Labs: Abnormal Lab Results - Last 24 Hours (Table) 10/03/23 10/03/23 10/03/23 Range/Units 15:29 15:29 15:29 WBC 13.7 H (3.8-10.6) k/uL RBC 6.77 H (4.30-5.90) m/uL Hgb 18.9 H (13.0-17.5) gm/dL Hct 57.5 H* (39.0-53.0) % Plt Count (150-450) k/uL Neutrophils # 9.6 H (1.3-7.7) k/uL APTT (22.0-30.0) sec D-Dimer (<0.60) mg/L FEU Potassium 5.8 H (3.5-5.1) mmol/L Chloride 109 H (98-107) mmol/L Carbon Dioxide 14 L (22-30) mmol/L BUN (9-20) mg/dL Creatinine (0.66-1.25) mg/dL Glucose 118 H (74-99) mg/dL Total Bilirubin 2.1 H (0.2-1.3) mg/dL AST 66 H (17-59) U/L Troponin I 0.104 H* (0.000-0.034) ng/mL Total Protein 9.4 H (6.3-8.2) g/dL Albumin 5.2 H (3.5-5.0) g/dL 10/03/23 10/03/23 10/04/23 Range/Units 18:06 20:40 09:27 WBC (3.8-10.6) k/uL RBC 5.98 H (4.30-5.90) m/uL Hgb (13.0-17.5) gm/dL Hct (39.0-53.0) % Plt Count 148 L (150-450) k/uL Neutrophils # (1.3-7.7) k/uL APTT (22.0-30.0) sec D-Dimer (<0.60) mg/L FEU Potassium (3.5-5.1) mmol/L Chloride (98-107) mmol/L Carbon Dioxide (22-30) mmol/L BUN (9-20) mg/dL Creatinine (0.66-1.25) mg/dL Glucose (74-99) mg/dL Total Bilirubin (0.2-1.3) mg/dL AST (17-59) U/L Troponin I 0.104 H* 0.097 H* (0.000-0.034) ng/mL Total Protein (6.3-8.2) g/dL Albumin (3.5-5.0) g/dL 10/04/23 10/04/23 10/04/23 Range/Units 09:27 09:27 09:27 WBC (3.8-10.6) k/uL RBC (4.30-5.90) m/uL Hgb (13.0-17.5) gm/dL Hct (39.0-53.0) % Plt Count (150-450) k/uL Neutrophils # (1.3-7.7) k/uL APTT 33.2 H (22.0-30.0) sec D-Dimer 8.89 H (<0.60) mg/L FEU Potassium (3.5-5.1) mmol/L Chloride 108 H (98-107) mmol/L Carbon Dioxide (22-30) mmol/L BUN 21 H (9-20) mg/dL Creatinine 1.36 H (0.66-1.25) mg/dL Glucose 118 H (74-99) mg/dL Total Bilirubin (0.2-1.3) mg/dL AST (17-59) U/L Troponin I (0.000-0.034) ng/mL Total Protein (6.3-8.2) g/dL Albumin (3.5-5.0) g/dL
[2023-10-04 17:30] LABS: Glucose,Whole Blood 102 mg/dL (70-110)
[2023-10-04] MEDS: ALTEPLASE 6 MG in SODIUM CHLORIDE 0.9% 144 ML IV ONE (17:30)
[2023-10-04] MEDS: SODIUM CHLORIDE 0.9% 1,000 ML IV SCH ×2 (17:54)
[2023-10-04] MEDS: ATORVASTATIN 40 MG TAB PO SCH (21:32)
--- NOTE | 2023-10-04 22:02 | P.PCN ---
Description of Procedure: PROCEDURES PERFORMED: Bilateral EKOS catheter placement INDICATION: Submassive bilateral PE with right heart strain, pulmonary hyperte nsion PROCEDURE: After the risks, benefits and alternatives of the above mentioned procedure explained in detail with the patient, informed consent was obtained. Patient was taken to the catheterization lab and prepped and draped in usual fashion. 1% lidocaine was used to anesthetize the right femoral area. 2 x 6- Kosovan sheath was placed in the right femoral vein using modified Seldinger technique and ultrasound guidance. Next using a 5-Kosovan FR4 catheter and a 0.035 stiff glide the FR4 catheter was advanced into the left and then right middle segmental pulmonary artery. Next the EKOS catheter was then advanced into the right and then a second EKOS catheter was advanced into the left pulmonary artery. The EKOS device was advanced through the catheter and secured in place bilaterally. The patient tolerated the procedure well. Patient was transported back to the post catheterization holding area in stable condition. Conscious Sedation: Patient was monitored under the direct supervision of vision of myself for conscious sedation using Versed and fentanyl for a total duration of 20 minutes FINAL IMPRESSION: 1. Submassive bilateral PE status post bilateral EKOS catheter placement. PLAN: 1. Aggressive risk factor modification per most recent ACC/AHA guidelines. 2. Catheter directed TPA x 6 hrs and EKOS treatment.
[2023-10-05 01:15] LABS: Basophils % (A) 0 %; Eosinophils # (A) 0.1 k/uL (0-0.7); Eosinophils % (A) 1 %; HCT 46.1 % (39.0-53.0); HGB 15.1 gm/dL (13.0-17.5); Lymphocytes % (A) 22 %; MCH 28.1 pg (25.0-35.0); MCHC 32.8 g/dL (31.0-37.0); MCV 85.4 fL (80.0-100.0); Mean Platelet Volume 9.8; Monocytes # (A) 0.7 k/uL (0-1.0); Monocytes % (A) 8 %; Neutrophils # (A) 5.9 k/uL (1.3-7.7); Neutrophils % (A) 67 %; Platelet Count 109 k/uL (150-450); RDW 13.8 % (11.5-15.5); WBC 8.8 k/uL (3.8-10.6)
--- NOTE | 2023-10-05 02:36 | P.CNPUL ---
History of Present Illness Consult date: 10/05/23 Requesting physician: Juan Melendez Reason for consult: pulmonary embolism Chief complaint: Sudden onset of shortness of breath and chest pain History of present illness: Patient is a 68-year-old male with past medical history significant for hypertension, GERD, and colon cancer status post subtotal colectomy. Patient was [place], he had a sudden episode of acute shortness of breath and chest pain while carrying deer feed out to his food plot. He rested, and then drove his home. Adele gibbons is approximately 3 hours from here. He also recently drove home from [place] Aug, 2023. He has noticed some posterior left knee pain, he attributed this to hyperextending his knee in Aug, 2023. No personal or familial history of thromboembolic disease. No recent hospitalizations prior to this. No recent surgeries or trauma. Colon cancer history is remote. On arrival to the emergency department he was initially worked up for ACS. Troponins were elevated at 1.04, 1.04, and 0.097. EKG demonstrated normal sinus rhythm with T wave inversions in V1 and V2. D-dimer was elevated 8.89. Chest CTA was performed yesterday which demonstrated bilateral pulmonary emboli to the main right and left pulmonary arteries as well as large clot burden throughout the segmental branches bilaterally. There was CT evidence of right-sided heart strain. Echocardiogram demonstrates severe concentric left ventricular hypertrophy as well as severe right ventricular dilation, moderately reduced ri ght-sided systolic function, moderate tricuspid regurgitation, and an RVSP of 60 mmHg. Patient did undergo EKOS yesterday, and alteplase was infused for 6 hours. Currently, patient is resting comfortably in the intensive care unit. He is on 2 L/min nasal cannula. SpO2 is 95%. Blood pressure is normotensive, not requiring any vasopressor support. Heart rhythm appears normal sinus on bedside monitor with a rate of 66 bpm. Patient denies any current chest pain. No bleeding from any of the sites. Last fibrinogen was 368. EKOS catheter is still on and infusing heparin, but alteplase is already infused. There is a right groin sheath, without hematoma. Neurovascular status of the bilateral lower extremities is intact. Venous Doppler of left lower extremity positive for left popliteal DVT extending into the proximal calf veins. CBC from this morning is unremarkable. Hemoglobin stable at 15 g/dL. BMP from yesterday: Sodium 138, potassium 4.5, chloride 105, serum bicarb 26, BUN 21, creatinine 1.38, glucose 111. Patient does have urinary catheter, producing around 50 mL of urine per hour. Hemodynamics are currently stable. Review of Systems REVIEW OF SYSTEMS: CONSTITUTIONAL: Denies any recent significant weight loss or weight gain. Denies fevers. EYES: Denies change in vision. EARS, NOSE, MOUTH, THROAT: Denies headaches, denies sore throat. CARDIOVASCULAR: Admits severe substernal chest pain/pressure that occurred suddenly and lasted until he he drove himself [place] department. Accompanied with severe shortness of breath. No associated heart palpitations, lightheadedness, or syncopal events. RESPIRATORY: Admits acute onset shortness of breath. No cough, hemoptysis. GASTROINTESTINAL: Denies change in appetite, abdominal pain, nausea and vomiting, or diarrhea GENITOURINARY: Denies hematuria, denies infections. MUSKULOSKELETAL: Admits left posterior knee pain. INTEGUMENTARY: Denies rash, denies eczema. NEUROLOGICAL: Denies recent memory loss, no recent seizure activity. PSYCHIATRIC: Denies anxiety, denies depression. HEMATOLOGIC/LYMPHATIC: Denies anemia, denies enlarged lymph node Past Medical History Past Medical History: Cancer, GERD/Reflux, Hypertension Additional Past Medical History / Comment(s): Colon Cancer currently, occ abd pain @ umbilicus. History of Any Multi-Drug Resistant Organisms: None Reported Past Surgical History: Hernia Repair, Orthopedic Surgery Additional Past Surgical History / Comment(s): RT KNEE SX. Lt shoulder. Rt ing Hernia. COLONOSCOPY/EGD Past Anesthesia/Blood Transfusion Reactions: No Reported Reaction Past Psychological History: No Psychological Hx Reported Smoking Status: Never smoker Past Alcohol Use History: Occasional Past Drug Use History: None Reported - Past Family History Mother Family Medical History: No Reported History Medications and Allergies Home Medications Medication Instructions Recorded Confirmed Type Losartan Potassium 100 mg PO DAILY 05/29/19 10/03/23 History Omeprazole 20 mg PO DAILY 05/29/19 10/03/23 History atenoloL [Tenormin] 50 mg PO DAILY 05/29/19 10/03/23 History Cholecalciferol [Vitamin D3 (25 25 mcg PO DAILY 10/03/23 10/03/23 History Mcg = 1000 Iu)] Citalopram Hydrobromide 10 mg PO DAILY 10/03/23 10/03/23 History [Citalopram HBr] Allergies Allergy/AdvReac Type Severity Reaction Status Date / Time No Known Allergies Allergy Verified 10/03/23 16:56 Physical Exam Vitals: Vital Signs Temp Pulse Pulse Resp BP BP Pulse Ox 10/05/23 02:00 69 11 L 162/96 95 10/05/23 01:00 65 22 159/103 97 10/05/23 00:13 64 22 159/103 95 10/05/23 00:00 97.8 F 66 13 155/97 95 10/04/23 23:00 65 17 154/97 92 L 10/04/23 22:00 64 18 146/96 96 10/04/23 21:00 65 17 145/104 90 L 10/04/23 20:00 97.7 F 69 18 150/110 93 L 10/04/23 19:00 70 17 159/92 96 10/04/23 18:00 67 22 166/100 94 L 10/04/23 17:29 67 22 158/92 95 10/04/23 17:05 97 10/04/23 14:51 72 18 149/114 97 10/04/23 11:13 71 19 139/121 96 10/04/23 07:34 97.4 F L 73 18 165/113 97 10/04/23 05:58 71 18 122/86 94 L 10/04/23 02:14 74 18 139/99 93 L Intake and Output 10/04/23 10/04/23 10/05/23 14:59 22:59 06:59 Intake Total 196.767 220.76 70 Output Total 535 160 Balance 196.767 -314.24 -90 Intake: IV 50 Intake, IV Titration 196.767 170.76 70 Amount Heparin Sod,Pork in 0.45% 47.91 NaCl 25,000 unit In 0.45 % NaCl 1 250ml.bag @ 16.9 UNITS/KG/HR 22.997 mls/ hr IV .[id number] [facility] Rx#: [id number] Heparin Sod,Pork in 0.45% 175.167 17.85 NaCl 25,000 unit In 0.45 % NaCl 1 250ml.bag @ 7. 3487 UNITS/KG/HR 10 mls/ hr IV .Q24H [facility] Rx#: [id number] Nitroglycerin-D5w Pmx 50 21.6 mg In Dextrose/Water 1 250ml.bag @ 5 MCG/MIN 1.5 mls/hr IV .Q24H [facility] Rx#: [id number] Sodium Chloride 0.9% 1, 105 70 000 ml @ 35 mls/hr IV . Q24H [facility] Rx#:[id number] Output: Urine 535 160 Uretheral ([place]) 375 Other: Weight 136.078 kg GENERAL EXAM: Alert, 68-year-old white male, lying in a reverse Trendelenburg position, comfortable in no apparent distress. EKOS machine is at bedside HEAD: Normocephalic and atraumatic EYES: Normal reaction of pupils, equal size. NOSE: Clear with pink turbinates. THROAT: No erythema or exudates. NECK: No masses, no JVD. CHEST: No chest wall deformity. LUNGS: Equal air entry with no crackles, wheeze, rhonchi or dullness. On 2 L/min nasal cannula. No conversational dyspnea or accessory muscle use.. CVS: S1 and S2 normal with no audible murmur, regular rhythm. No extra heart sounds ABDOMEN: No hepatosplenomegaly, active bowel sounds, no guarding or rigidity. SPINE: No scoliosis or deformity SKIN: No rashes CENTRAL NERVOUS SYSTEM: No focal deficits, tone is normal in all 4 extremities. EXTREMITIES: There is no peripheral edema, clubbing, or cyanosis. Peripheral pulses are intact. Right groin sheath present, no hematoma. Bilateral lower extremities are warm, equal 2+ pulses, sensation intact. Results - Laboratory Findings CBC and BMP: 10/05/23 00:41 10/04/23 15:41 PT/INR, D-dimer PT 11.3 sec (10.0-12.5) 10/04/23 15:41 INR 1.0 (<1.2) 10/04/23 15:41 D-Dimer 8.89 mg/L FEU (<0.60) H 10/04/23 09:27 Abnormal lab findings: Abnormal Labs 10/03/23 10/03/23 10/03/23 15:29 15:29 15:29 WBC 13.7 H RBC 6.77 H Hgb 18.9 H Hct 57.5 H* Plt Count Neutrophils # 9.6 H APTT D-Dimer Potassium 5.8 H Chloride 109 H Carbon Dioxide 14 L BUN Creatinine Glucose 118 H Total Bilirubin 2.1 H AST 66 H Troponin I 0.104 H* Total Protein 9.4 H Albumin 5.2 H 10/03/23 10/03/23 10/04/23 18:06 20:40 09:27 WBC RBC 5.98 H Hgb Hct Plt Count 148 L Neutrophils # APTT D-Dimer Potassium Chloride Carbon Dioxide BUN Creatinine Glucose Total Bilirubin AST Troponin I 0.104 H* 0.097 H* Total Protein Albumin 10/04/23 10/04/23 10/04/23 09:27 09:27 09:27 WBC RBC Hgb Hct Plt Count Neutrophils # APTT 33.2 H D-Dimer 8.89 H Potassium Chloride 108 H Carbon Dioxide BUN 21 H Creatinine 1.36 H Glucose 118 H Total Bilirubin AST Troponin I Total Protein Albumin 10/04/23 10/04/23 10/05/23 15:41 15:41 00:41 WBC RBC Hgb Hct Plt Count 109 L Neutrophils # APTT 47.6 H D-Dimer Potassium Chloride Carbon Dioxide BUN 21 H Creatinine 1.38 H Glucose 111 H Total Bilirubin AST Troponin I Total Protein Albumin - Diagnostic Findings Chest x-ray: image reviewed CT scan - chest: image reviewed Assessment and Plan Assessment: Submassive bilateral pulmonary embolism, with associated right heart strain, status post EKOS. Acute hypoxemic respiratory failure, currently on 2 L/min nasal cannula, secondary to above Left popliteal DVT, extending into the left proximal calf veins. History of prolonged driving Acute kidney injury History of hypertension History of GERD without esophagitis Remote history of colon cancer status post subtotal colectomy Plan: Patient's medications, labs, imaging reviewed Patient is currently in the intensive care unit, EKOS machine is at bedside. Patient has received total dose of alteplase. Currently, has heparin infusing through sheath. Sheath will likely be pulled in the morning. Monitor for bleeding. Continue supplemental oxygen, currently on 2 L/min nasal cannula Hemodynamics are stable, blood pressure is normotensive, not requiring vasopressor support. PE possibly exacerbated by prolonged car travel/driving. Patient will likely be transitioned to DOAC later this admission, and continued for at least 3 to 6 months We will continue to follow I have personally seen and examined the patient, performed the documentation and the assessment and plan as written. Number of minutes spent on the visit:20 P Time with Patient: Greater than 30
[2023-10-05 08:31] LABS: Basophils # (A) 0.1 k/uL (0-0.2); Basophils % (A) 1 %; Eosinophils # (A) 0.1 k/uL (0-0.7); Eosinophils % (A) 1 %; HCT 46.5 % (39.0-53.0); HGB 15.4 gm/dL (13.0-17.5); Lymphocytes # (A) 1.3 k/uL (1.0-4.8); Lymphocytes % (A) 17 %; MCH 28.2 pg (25.0-35.0); MCHC 33.1 g/dL (31.0-37.0); MCV 85.2 fL (80.0-100.0); Monocytes # (A) 0.6 k/uL (0-1.0); Monocytes % (A) 7 %; Neutrophils # (A) 5.6 k/uL (1.3-7.7); Neutrophils % (A) 73 %; Platelet Count 101 k/uL (150-450); RBC 5.46 m/uL (4.30-5.90); RDW 13.7 % (11.5-15.5); WBC 7.7 k/uL (3.8-10.6)
[2023-10-05 08:46] LABS: African American GFR (CKD) 68 (>60 ml/min/1.73 sqM); Anion Gap 8 mmol/L; Blood Urea Nitrogen 18 mg/dL (9-20); Calcium 9.1 mg/dL (8.4-10.2); Carbon Dioxide 22 mmol/L (22-30); Chloride 109 mmol/L (98-107); Glucose 99 mg/dL (74-99); Non-African American GFR(CKD) 59 (>60 ml/min/1.73 sqM); Potassium 4.2 mmol/L (3.5-5.1); Sodium 139 mmol/L (137-145)
--- NOTE | 2023-10-05 09:41 | CDI ---
Documentation Clarification Form Date: 10/05/2023 From: Bridget Martell Phone: [phone] Admit Date: 10/03/2023 05:32:00 PM Patient Name: Kuldeep Luis Visit Number: [id number] Discharge Date: ATTENTION: The Clinical Documentation Specialists (CDI) and [facility] Coding Staff appreciate your assistance in clarifying documentation. Please respond to the clarification below the line at the bottom and electronically sign. The CDI & [facility] Coding staff will review the response and follow-up if needed. Please note: Queries are made part of the Legal Health Record. If you have any questions, please contact the author of this message via ITS. Dr. Juan Melendez: Right heart strain is documented in the EKOS procedure note 10/03. Additional clarification regarding the right heart strain is requested. History/Risk Factors: 68-year-old male with a history of HTN, colon cancer who presented with SOB and some chest discomfort and bilateral leg discomfort Clinical Indicators: 10/02 Triage VS: 198/142, 97.9, 90, 18, 94% room air 10/03 H&P, Assessment and Plan: "Right ventricular dilation strain likely from underlying significant PE." 10/03 EKOS Procedure note, Indication: "Submassive bilateral PE with right heart strain, pulmonary hypertension." 10/03 ECHO: "EF 60-65%, Severe right ventricular dilatation. Moderately reduced right ventricular global systolic function. Severe pulmonary hypertension. Right ventricular systolic pressure estimated at 60 mmHg." 10/03 CTA Chest, Impression: "1. Exam positive for bilateral pulmonary emboli, fairly heavy burden extending throughout the distal aspect of the main pulmonary arteries and variably throughout the lobar and segmental branches on both sides. 2. Findings concerning for early right heart strain." 10/04 Cardiology PN, Assessment: "Cor pulmonale related to submassive PE" 10/02 BNP: 4470 Troponin: 0.104, 0.104, 0.097 Treatment: Heparin 4000u once 10/02 then titrated drip 10/02-10/03 Heparin 4000u once 10/03 then titrated drip 10/03 EKOS Alteplase infusion 1mg/hour (25mls/hour) 10/03 Please clarify the acuity of the Cor pulmonale, if known: [ ] Acute Cor pulmonale due to pulmonary embolism [ ] Unable to determine [ ] Other, please specify MTDD
[2023-10-05] MEDS: ATROPINE SULFATE 0.1 MG/ML 10ML SYRINGE ONE (12:11)
[2023-10-05] MEDS: APIXABAN 5 MG TAB PO SCH (13:36)
[2023-10-05 13:42] LABS: Basophils # (A) 0.1 k/uL (0-0.2); Basophils % (A) 1 %; Eosinophils # (A) 0.1 k/uL (0-0.7); Eosinophils % (A) 1 %; HCT 46.8 % (39.0-53.0); HGB 15.4 gm/dL (13.0-17.5); Lymphocytes # (A) 1.5 k/uL (1.0-4.8); Lymphocytes % (A) 18 %; MCH 28.1 pg (25.0-35.0); MCHC 32.9 g/dL (31.0-37.0); MCV 85.4 fL (80.0-100.0); Mean Platelet Volume 9.5; Monocytes # (A) 0.6 k/uL (0-1.0); Monocytes % (A) 6 %; Neutrophils # (A) 6.4 k/uL (1.3-7.7); Neutrophils % (A) 74 %; Platelet Count 119 k/uL (150-450); RBC 5.49 m/uL (4.30-5.90); RDW 13.7 % (11.5-15.5); WBC 8.7 k/uL (3.8-10.6)
[2023-10-05 15:19] VITALS: RESP 18
--- NOTE | 2023-10-05 15:52 | P.PN ---
Progress Note - Text Progress Note Date: 10/05/23 Chief Complaint: Short of breath This is a pleasant 68-year-old patient, follows with Dr. Daja Trinh. Chronic stable medical condition include hypertension, GERD, anxiety, history of colon cancer with right colon removed several years ago. 4 days ago that is on Monday patient noticed that he is became rather short of breath. Some chest discomfort. He pretty much stayed at home all day. Next day he can have just took it easy. Patient was out of town. Finally decided to come down to the ER yesterday driving down here.. Patient's both the legs have been having discomfort for last few days. And about a month ago there is an episode of rat er short of breath while patient was in [place] and he thought this was heat. Patient is accompanied by his at the bedside. Patient had some troponin leak. CT scan chest pending. October 04: Patient had acute PE large burden. Underwent bilateral EKOS, catheter placement yesterday. By Dr. Melendez. This morning in the ICU. Comfortable. Breathing better. Did tolerate a diet. Sheath was removed this afternoon. Will ambulate later. Being started on Eliquis Active Medications Acetaminophen (Acetaminophen Tab 500 Mg Tab) 500 mg PO Q8HR PRN PRN Reason: Fever and/ or Pain Last Admin: 10/05/23 09:55 Dose: 500 mg Amlodipine Besylate (Amlodipine 10 Mg Tab) 10 mg PO DAILY [facility] Last Admin: 10/05/23 09:47 Dose: 10 mg Apixaban (Apixaban 5 Mg Tab) 10 mg PO BID [facility]; Protocol Last Admin: 10/05/23 13:36 Dose: 10 mg Aspirin (Aspirin 81 Mg) 81 mg PO DAILY [facility] Last Admin: 10/05/23 09:47 Dose: 81 mg Atenolol (Atenolol 50 Mg Tab) 50 mg PO DAILY [facility] Last Admin: 10/05/23 10:09 Dose: 50 mg Atorvastatin Calcium (Atorvastatin 40 Mg Tab) 40 mg PO HS [facility] Last Admin: 10/04/23 21:32 Dose: 40 mg Cholecalciferol (Cholecalciferol 25 Mcg (1000 Iu) Tablet) 25 mcg PO DAILY [facility] Last Admin: 10/05/23 09:47 Dose: 25 mcg Citalopram Hydrobromide (Citalopram Hydrobromide 10 Mg Tab) 10 mg PO DAILY [facility] Last Admin: 10/05/23 10:09 Dose: 10 mg Heparin Sodium (Porcine) (Heparin Sodium 1,000 Un/Ml (10ml Vl)) 0 unit IV PER PROTOCOL PRN; Protocol PRN Reason: Low PTT Last Admin: 10/04/23 10:17 Dose: 4,000 unit Hydrochlorothiazide (Hydrochlorothiazide 25 Mg Tab) 25 mg PO DAILY [facility] Last Admin: 10/05/23 10:09 Dose: 25 mg Losartan Potassium (Losartan 50 Mg Tab) 100 mg PO DAILY [facility] Last Admin: 10/05/23 09:47 Dose: 100 mg Morphine Sulfate (Morphine Sulfate 4 Mg/Ml Syringe) 4 mg IV Q4HR PRN PRN Reason: Severe Pain (Scale 7 to 10) Naloxone HCl (Naloxone 0.4 Mg/Ml 1 Ml Vial) 0.2 mg IV Q2M PRN PRN Reason: Opioid Reversal Nitroglycerin (Nitroglycerin Oint 1 Inch/Gm Packet) 1 inch TOPICAL Q8HR [facility] Last Admin: 10/05/23 09:47 Dose: 1 inch Pantoprazole Sodium (Pantoprazole 40 Mg Tablet) 40 mg PO AC-BRKFST [facility] Last Admin: 10/05/23 07:17 Dose: Not Given Social history: Patient retired. Smoked for about 10 years stopped about 30 years ago. . Physical examination: VITAL SIGNS: 97.9, 62, 18, 137/85, 95% on 2 L GENERAL: Reclining in bed, comfortable. EYES: Pupils equal. Conjunctiva prakash l. HEENT: External appearance of nose and ears normal, oral cavity grossly normal. NECK: JVD not raised; masses not palpable. HEART: First and second heart sounds are normal; no edema. LUNGS: Respiratory rate normal; clear to auscultation. ABDOMEN: Soft, nontender, liver spleen not palpable, no masses palpable. PSYCH: Alert and oriented x3; mood and affect prakash l. MUSCULOSKELETAL:No Clubbing/cyanosis;muscles-grossly intact INVESTIGATIONS, reviewed in the clinical context: October 04: White count 8.7 hemoglobin 15.4 platelets 119 potassium 4.2 creatinine 1.26 2D echocardiogram: EF 60-65%. Severely increased septal wall thickness. Severe concentric LVH. Severe right ventricle dilatation severe pulmonary hypertension moderate tricuspid regurgitation October 03: White count 10.2 hemoglobin 16.5 platelets 151 sodium 138 potassium 4.5 BUN 21 creatinine 1.38 October 02: White count 3.7 hemoglobin 18.9 platelets 175 potassium 5.8 BUN 18 creatinine 1.23 Troponin I 0.104, 0.104, 0.097 proBNP 4490 EKG tracing personally reviewed by me-normal sinus rhythm. 7T wave changes. And ST segment changes in anterior leads Chest x-ray film personally reviewed by me-cardiomegaly. Some prominent pulmonary artery Assessment and plan: -Acute severe PE. Causing secondary pulmonary hypertension and right ventricular strain. Troponin leak. Underwent bilateral EKOS, catheter placement -IV heparin monitoring Follow PTT -Troponinemia. Secondary to large PE -Essential hypertension Atenolol 50 mg a day losartan 100 mg a day -GERD Omeprazole 20 mg a day -Hyperkalemia on presentation likely from underlying CKD: Improved -Anxiety not otherwise specified Celexa 10 mg a day -Probable chronic kidney disease stage III likely nephrosclerosis Check renal ultrasound. UA -Obesity BMI 39.6 Weight loss measures Patient is ICU. Sheath to be removed. Discussed. Started on Eliquis Past Medical History Past Medical History: Cancer, GERD/Reflux, Hypertension Additional Past Medical History / Comment(s): Colon Cancer currently, occ abd pain @ umbilicus. History of Any Multi-Drug Resistant Organisms: None Reported Past Surgical History: Hernia Repair, Orthopedic Surgery Additional Past Surgical History / Comment(s): RT KNEE SX. Lt shoulder. Rt ing Hernia. COLONOSCOPY/EGD Past Anesthesia/Blood Transfusion Reactions: No Reported Reaction Past Psychological History: No Psychological Hx Reported Smoking Status: Never smoker Past Alcohol Use History: Occasional Past Drug Use History: None Reported
--- NOTE | 2023-10-05 16:31 | US ---
EXAMINATION TYPE: US kidneys/renal and bladder DATE OF EXAM: 10/05/2023 COMPARISON: CT Chest 10/04/2023 CLINICAL INDICATION: Male, 68 years old with history of Evaluate for CKD; CKD, abnormal CT EXAM MEASUREMENTS: Right Kidney: 11.2 x 5.1 x 5.3 cm Left Kidney: 10.7 x 5.4 x 5.0 cm Loan Associate notes: Large pt with labored breathing- difficult to scan Right Kidney: Loan Associate notes: No evidence of hydro, possible lesion visualized on chest CT is not appreciated on US- ?possible solid lesion not well defined on US Left Kidney: No evidence of hydro, cystic lesion mid/medial= 3.1 x 2.0 x 2.9 cm Bladder: Not well evaluated as the patient has a Cardoza catheter in place. IMPRESSION: 1. No hydronephrosis. A benign 3.1 cm mid pole cyst on the left. 2. Unable to identify a correlating lesion within the right kidney as seen on patient's CT from yeste rday. Possibly due to overall patient condition. Given that the lesion is suspected to represent a cy st, recommend three-month follow-up CT to ensure stability.
--- NOTE | 2023-10-05 16:47 | P.PN ---
Subjective HISTORY OF PRESENT ILLNESS: This is a 68-year-old male with a past medical history significant for obesity, GERD, and hypertension. 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 We have been asked to see the patient in consultation for chest pain and non-STEMI. Patient examined at the bedside in the emergency room. Patient states on Monday he was carrying a 40 pound block when he suddenly lost his breath and had to sit down. He states it took him approximately 1 hour to recover and since that time he has been very short of breath. He states on Monday he did not do much at all and just sat around due to his shortness of breath. He reports having mild chest discomfort as well. He continues to be short of breath at the time of examination. He is a non-smoker. He reports occasional alcohol use. He states he has a family history of CAD. His mother had a heart attack when she was in her 40s. Denies any history on his dad side. He does report a high salt intake diet at home. He also reports having occasional spikes in his blood pressure at home. Patient's blood pressure was significantly elevated upon admission to the hospital with a reading of 198/142. DIAGNOSTICS: - EKG reveals sinus mechanism with T wave inversions in lead V2V3 - Chest xray negative for acute process - Laboratory data: WBC 10.5. Hemoglobin 16.8. Platelet count 148. D-dimer 8.89. Sodium 140. Potassium 4.3. BUN 21. Creatinine 1.36. Troponin 0.104. 0.104. 0.097. proBNP 4470. - Current home cardiac medications include atenolol 50 mg daily and losartan 100 mg daily. 10/04 patient seen and examined. Patient tolerated have bilateral pulmonary emboli's and right heart strain and therefore underwent E Kos yesterday with 6 hrs catheter directed TPA given from a right femoral approach. Catheter was pulled this morning and femoral sheaths were pulled this afternoon. He denies any chest pain or pressure. He states he is feeling better. No significant hematochezia or melena. PHYSICAL EXAM: VITAL SIGNS: Reviewed. GENERAL: Well-developed in no acute distress. HEENT: Head is normocephalic. Pupils are equal, round. Sclerae anicteric. Mucous membranes of the mouth are moist. Neck supple. No JVD or thyromegaly LUNGS: Respirations even and unlabored. Lungs essentially clear to auscultation bilaterally. HEART: Regular rate and rhythm. S1 and S2 heard. ABDOMEN: Soft. Nondistended. Nontender. EXTREMITIES: Normal range of motion. No clubbing or cyanosis. Peripheral pulses intact. No lower extremity edema NEUROLOGIC: Awake and alert. Oriented x 3. ASSESSMENT: Shortness of breath x 1 week with sudden onset Non-STEMI, type II due to oxygen supply and demand mismatch due to pulmonary embolism Hypertensive emergency GERD Obesity: BMI 39.6 acute bilateral PE s/p EKOS 10/03 Cor pulmonale related to submassive PE PLAN: transition patient to Eliquis 10mg bid taper. If patient remains stable likely discharge home 10/05. Okay for transfer out of ICU. Objective - Vital Signs Vital signs: Vital Signs Temp 97.9 F 10/05/23 15:00 Pulse 62 10/05/23 15:00 Resp 18 10/05/23 15:00 BP 137/85 10/05/23 15:00 Pulse Ox 95 10/05/23 15:00 FiO2 Intake & Output 10/04/23 10/05/23 10/05/23 18:59 06:59 18:59 Intake Total 312.527 385 655 Output Total 375 745 435 Balance -62.473 -360 220 Weight 136.078 kg Intake: IV 50 120 KVO 120 Intake, IV Titration 262.527 385 35 Amount Heparin Sod,Pork in 0.45% 47.91 NaCl 25,000 unit In 0.45 % NaCl 1 250ml.bag @ 16.9 UNITS/KG/HR 22.997 mls/ hr IV .[id number] [facility] Rx#: [id number] Heparin Sod,Pork in 0.45% 193.017 NaCl 25,000 unit In 0.45 % NaCl 1 250ml.bag @ 7. 3487 UNITS/KG/HR 10 mls/ hr IV .Q24H [facility] Rx#: [id number] Nitroglycerin-D5w Pmx 50 21.6 mg In Dextrose/Water 1 250ml.bag @ 5 MCG/MIN 1.5 mls/hr IV .Q24H ONE Rx#: [id number] Sodium Chloride 0.9% 1, 385 35 000 ml @ 35 mls/hr IV . Q24H [facility] Rx#:[id number] Oral 500 Output: Urine 375 745 435 Uretheral (Cardoza) 375 - Labs CBC & Chem 7: 10/05/23 13:05 10/05/23 08:15 Labs: Abnormal Lab Results - Last 24 Hours (Table) 10/05/23 10/05/23 10/05/23 Range/Units 00:41 08:15 08:15 Plt Count 109 L 101 L (150-450) k/uL Chloride 109 H (98-107) mmol/L Creatinine 1.26 H (0.66-1.25) mg/dL 10/05/23 Range/Units 13:05 Plt Count 119 L (150-450) k/uL Chloride (98-107) mmol/L Creatinine (0.66-1.25) mg/dL
[2023-10-06 09:09] LABS: Basophils % (A) 1 %; Eosinophils # (A) 0.1 k/uL (0-0.7); Eosinophils % (A) 1 %; HCT 45.7 % (39.0-53.0); HGB 15.6 gm/dL (13.0-17.5); Lymphocytes # (A) 1.5 k/uL (1.0-4.8); Lymphocytes % (A) 21 %; MCH 29.1 pg (25.0-35.0); MCHC 34.1 g/dL (31.0-37.0); MCV 85.3 fL (80.0-100.0); Mean Platelet Volume 10.3; Monocytes # (A) 0.5 k/uL (0-1.0); Monocytes % (A) 7 %; Neutrophils # (A) 5.1 k/uL (1.3-7.7); Neutrophils % (A) 70 %; Platelet Count 117 k/uL (150-450); RBC 5.36 m/uL (4.30-5.90); RDW 13.8 % (11.5-15.5); WBC 7.2 k/uL (3.8-10.6)
[2023-10-06 09:16] LABS: African American GFR (CKD) 68 (>60 ml/min/1.73 sqM); Anion Gap 7 mmol/L; Blood Urea Nitrogen 16 mg/dL (9-20); Calcium 9.3 mg/dL (8.4-10.2); Carbon Dioxide 23 mmol/L (22-30); Chloride 106 mmol/L (98-107); Glucose 126 mg/dL (74-99); Non-African American GFR(CKD) 59 (>60 ml/min/1.73 sqM); Potassium 3.7 mmol/L (3.5-5.1); Sodium 136 mmol/L (137-145)
[2023-10-06 13:02] VITALS: BP 135/80; PULSE 58; TEMP 98
--- NOTE | 2023-10-06 14:46 | P.PN ---
Subjective Progress Note Date: 10/06/23 Principal diagnosis: Shortness of breath. Patient is a 68-year-old male with past medical history significant for hypertension, GERD, and colon cancer status post subtotal colectomy. [place] episode of acute shortness of breath and chest pain while carrying deer feed out to his food plot. He rested, and then drove his home. [place] 3 hours [place] here. He also recently drove home from [place] Aug, 2023. He has noticed some posterior left knee pain, he attributed this to hyperextending his knee in Aug, 2023. No personal or familial history of thromboembolic disease. No recent hospitalizations prior to this. No recent surgeries or trauma. Colon cancer history is remote. On arrival to the emergency department he was initially worked up for ACS. Troponins were elevated at 1.04, 1.04, and 0.097. EKG demonstrated normal sinus rhythm with T wave inversions in V1 and V2. D-dimer was elevated 8.89. Chest CTA was performed yesterday which demonstrated bilateral pulmonary emboli to the main right and left pulmonary arteries as well as large clot burden throughout the segmental branches bilaterally. There was CT evidence of right-sided heart strain. Echocardiogram demonstrates severe concentric left ventricular hypertrophy as well as severe right ventricular dilation, moderately reduced right-sided systolic function, moderate tricuspid regurgitation, and an RVSP of 60 mmHg. Patient did undergo EKOS yesterday, and alteplase was infused for 6 hours. Currently, patient is resting comfortably in the intensive care unit. He is on 2 L/min nasal cannula. SpO2 is 95%. Blood pressure is normotensive, not requiring any vasopressor support. Heart rhythm appears normal sinus on bedside monitor with a rate of 66 bpm. Patient denies any current chest pain. No bleeding from any of the sites. Last fibrinogen was 368. EKOS catheter is still on and infusing heparin, but alteplase is already infused. There is a right groin sheath, without hematoma. Neurovascular status of the bilateral lower extremities is intact. Venous Doppler of left lower extremity positive for left popliteal DVT extending into the proximal calf veins. CBC from this morning is unremarkable. Hemoglobin stable at 15 g/dL. BMP from yesterday: Sodium 138, potassium 4.5, chloride 105, serum bicarb 26, BUN 21, creatinine 1.3 8, glucose 111. Patient does have urinary catheter, producing around 50 mL of urine per hour. Hemodynamics are currently stable. Progress note dated October 06, 2023. 68-year-old male who is hoping to be discharged home today. The patient came in with shortness of breath, was found to have bilateral pulmonary emboli, and also right heart strain, and CT angiogram. The patient went to the catheterization laboratory, Dr. Melendez, to have EKOS. Currently, the patient is resting comfortably, in room 372. He is not requiring any fluids, or supplemental oxygen. He denies any shortness of breath or chest discomfort. The patient will follow-up with me in the office. Current labs include a white count of 7.2, hemoglobin 15.6, hematocrit 45.7, and a platelet count of 117,000. Sodium 136, potassium 3.7, chlorides 106, CO2 23, BUN 16, creatinine 1.26. Glucose is 126. Calcium is 9.3. Objective - Vital Signs Vital signs: Vital Signs Temp 98 F 10/06/23 12:00 Pulse 58 L 10/06/23 12:00 Resp 18 10/06/23 12:00 BP 135/80 10/06/23 12:00 Pulse Ox 96 10/06/23 12:00 FiO2 Intake & Output 10/05/23 10/06/23 10/06/23 18:59 06:59 18:59 Intake Total 765 1080 240 Output Total 435 3600 Balance 330 1080 -3360 Intake: IV 120 KVO 120 Intake, IV Titration 35 Amount Sodium Chloride 0.9% 1, 35 000 ml @ 35 mls/hr IV . Q24H ON LICENSE OF [facility] Rx#:[id number] Oral 610 1080 240 Output: Urine 435 3600 Uretheral (Cardoza) 1800 - Exam No acute distress, oriented 3. Currently on room air. Saturation is 96%. HEENT examination is grossly unremarkable. Mucous membranes are moist. No oral lesions. Neck supple. Full range of motion. No adenopathy thyromegaly or neck vein distention. Cardiovascular examination reveals regular rhythm rate. S1-S2 normal. No S3 or S4. No discernible murmur noted. Heart rate 58 bpm. Lungs reveal clear breath sounds. Breath sounds are equal bilaterally. No adventitious lung sounds including wheezes rhonchi or crackles. Abdomen soft bowel sounds are heard. No masses or tenderness. Extremities are intact. No cyanosis clubbing or edema. Skin is without rash or lesion. Neurologic examination is brief but nonfocal. - Labs CBC & Chem 7: 10/06/23 07:47 10/06/23 07:47 Labs: Abnormal Lab Results - Last 24 Hours (Table) 10/06/23 10/06/23 Range/Units 07:47 07:47 Plt Count 117 L (150-450) k/uL Sodium 136 L (137-145) mmol/L Creatinine 1.26 H (0.66-1.25) mg/dL Glucose 126 H (74-99) mg/dL Assessment and Plan Assessment: Submassive bilateral pulmonary embolism, with associated right heart strain, status post EKOS. Acute hypoxemic respiratory failure. Left popliteal DVT. History of prolonged driving Acute kidney injury History of hypertension History of GERD without esophagitis Remote history of colon cancer status post subtotal colectomy. Plan: Plan dated October 06, 2023. The patient is doing well. The patient states that he is not having any breathing issues whatsoever. The patient will follow-up with me in the office. He should be treated for at least 6 months, and maybe longer. We will discuss that when he gets to the office. In addition, 10 to 12 weeks after the initial CT angiogram, he should have a follow-up CT angiogram. We will set that up when he sees us in the office. Additional recommendations and suggestions are forthcoming. Prognosis is guarded. Time with Patient: Less than 30
--- NOTE | 2023-10-06 16:53 | P.DS ---
Providers Date of admission: 10/03/23 17:32 Expected date of discharge: 10/06/23 Attending physician: Deniz York Consults: 10/03/23 17:31 Consult Physician Urgent Consulting Provider: [facility] Consult Reason/Comments: acute chest pain, nstemi Do you want consulting provider notified?: Already Contacted 10/04/23 19:31 Consult Physician Routine Consulting Provider: Khai Joel Consult Reason/Comments: Post PE Care Do you want consulting provider notified?: Yes Primary care physician: Daja Trinh MD Hospital Course: Chief Complaint: Short of breath This is a pleasant 68-year-old patient, follows with Dr. Daja Trinh. Chronic stable medical condition include hypertension, GERD, anxiety, history of colon cancer with right colon removed several years ago. 4 days ago that is on Monday patient noticed that he is became rather short of breath. Some chest discomfort. He pretty much stayed at home all day. Next day he can have just took it easy. Patient was out of town. Finally decided to come down to the ER yesterday driving down here.. Patient's both the legs have been having discomfort for last few days. And about a month ago there is an episode of rather short of breath while patient was in [place] and he thought this was heat. Patient is accompanied by his at the bedside. Patient had some troponin leak. CT scan chest pending. October 04: Patient had acute PE large burden. Underwent bilateral EKOS, catheter placement yesterday. By Dr. Melendez. This morning in the ICU. Comfortable. Breathing better. Did tolerate a diet. Sheath was removed this afternoon. Will ambulate later. Being started on Eliquis October 05: Patient doing well. Cardoza was discontinued. Breathing rate improved. Did ambulate. MAKENZIE stockings ordered. Patient to follow-up with pulmonary. Questions answered. Discussion and discharge planning more than 35 minutes Social history: Patient retired. Smoked for about 10 years stopped about 30 years ago. . Physical examination: VITAL SIGNS: 98, 58, 18, 135/80, 96% room air GENERAL: Sitting up, comfortable. EYES: Pupils equal. Conjunctiva prakash l. HEENT: External appearance of nose and ears normal, oral cavity grossly normal. NECK: JVD not raised; masses not palpable. HEART: First and second heart sounds are normal; no edema. LUNGS: Respiratory rate normal; clear to auscultation. ABDOMEN: Soft, nontender, liver spleen not palpable, no masses palpable. PSYCH: Alert and oriented x3; mood and affect prakash l. MUSCULOSKELETAL:No Clubbing/cyanosis;muscles-grossly intact INVESTIGATIONS, reviewed in the clinical context: Renal ultrasound: Right kidney 11.2 x 5.1 x 5.3 cm left kidney 10.7 x 5.4 x 5 cm. October 05: White count 7.2 hemoglobin 14.6 platelets 117 potassium 3.7 creatinine 1.26 2D echocardiogram: EF 60-65%. Severely increased septal wall thickness. Severe concentric LVH. Severe right ventricle dilatation severe pulmonary hypertension moderate tricuspid regurgitation October 02: White count 3.7 hemoglobin 18.9 platelets 175 potassium 5.8 BUN 18 creatinine 1.23 Troponin I 0.104, 0.104, 0.097 proBNP 4490 EKG tracing personally reviewed by me-normal sinus rhythm. 7T wave changes. And ST segment changes in anterior leads Chest x-ray film personally reviewed by me-cardiomegaly. Some prominent pulmonary artery Assessment and plan: -Acute severe PE. Causing secondary pulmonary hypertension and right ventricular strain. Troponin leak. Underwent bilateral EKOS, catheter placement Eliquis -IV heparin monitoring Follow PTT -Troponinemia. Secondary to large PE -Essential hypertension Atenolol 50 mg a day losartan 100 mg a day -GERD Omeprazole 20 mg a day -Hyperkalemia on presentation likely from underlying CKD: Improved -Anxiety not otherwise specified Celexa 10 mg a day -Probable chronic kidney disease stage III likely nephrosclerosis Renal ultrasound unremarkable Follow-up with PCP and follow-up with nephrology -Obesity BMI 39.6 Weight loss measures Disposition: Home Past Medical History Past Medical History: Cancer, GERD/Reflux, Hypertension Additional Past Medical History / Comment(s): Colon Cancer currently, occ abd pain @ umbilicus. History of Any Multi-Drug Resistant Organisms: None Reported Past Surgical History: Hernia Repair, Orthopedic Surgery Additional Past Surgical History / Comment(s): RT KNEE SX. Lt shoulder. Rt ing Hernia. COLONOSCOPY/EGD Past Anesthesia/Blood Transfusion Reactions: No Reported Reaction Past Psychological History: No Psychological Hx Reported Smoking Status: Never smoker Past Alcohol Use History: Occasional Past Drug Use History: None Reported Plan - Discharge Summary Discharge Rx Participant: No New Discharge Prescriptions: New Aspirin 81 mg PO DAILY #30 tab Atorvastatin [Lipitor] 40 mg PO HS #30 tab amLODIPine [Norvasc] 10 mg PO HS #30 tab Apixaban [Eliquis Starter Pack (for VTE)] 5 - 10 mg PO DIRECTED 30 Days #1 each Continue atenoloL [Tenormin] 50 mg PO DAILY Omeprazole 20 mg PO DAILY Losartan Potassium 100 mg PO DAILY Citalopram Hydrobromide [Citalopram HBr] 10 mg PO DAILY Cholecalciferol [Vitamin D3 (25 Mcg = 1000 Iu)] 25 mcg PO DAILY Discharge Medication List Losartan Potassium 100 mg PO DAILY 05/29/19 [History] Omeprazole 20 mg PO DAILY 05/29/19 [History] atenoloL [Tenormin] 50 mg PO DAILY 05/29/19 [History] Cholecalciferol [Vitamin D3 (25 Mcg = 1000 Iu)] 25 mcg PO DAILY 10/03/23 [History] Citalopram Hydrobromide [Citalopram HBr] 10 mg PO DAILY 10/03/23 [History] Apixaban [Eliquis Starter Pack (for VTE)] 5 - 10 mg PO DIRECTED 30 Days #1 each 10/06/23 [Rx] Aspirin 81 mg PO DAILY #30 tab 10/06/23 [Rx] Atorvastatin [Lipitor] 40 mg PO HS #30 tab 10/06/23 [Rx] amLODIPine [Norvasc] 10 mg PO HS #30 tab 10/06/23 [Rx] Follow up Appointment(s)/Referral(s): Khai Joel DO [Doctor of Osteopathic Medicine] - 11/10/23 3:15 pm Daja Trinh MD [Primary Care Provider] - 1-2 days (please call to schedule an appointment) Patient Instructions/Handouts: Pulmonary Embolism (DC) Discharge Disposition: HOME WITH HOME HEALTH SERVICES
== END 2023-10-06 15:40 | disposition home or self-care (01) | DRG 173 ==
LOC: EC 15:01 → 3SCARD 17:32 → 2SICU 10-04 16:47 → 3SCARD 10-05 14:28
PROVIDERS: ADMIT Hospitalist; ATTEND Hospitalist
PROC: 02FQ3Z0 Fragmentation of Right Pulmonary Artery, Percutaneous Approach, Ultrasonic (ICD-10-PCS; principal; 2023-10-04 14:40)
PROC: 02FR3Z0 Fragmentation of Left Pulmonary Artery, Percutaneous Approach, Ultrasonic (ICD-10-PCS; principal; 2023-10-04 14:40)
PROC: 3E06317 Introduction of Other Thrombolytic into Central Artery, Percutaneous Approach (ICD-10-PCS; principal; 2023-10-04 14:40)
DX: I26.99 Other pulmonary embolism without acute cor pulmonale (principal); I21.A1 Myocardial infarction type 2; J96.01 Acute respiratory failure with hypoxia; I82.432 Acute embolism and thrombosis of left popliteal vein; I16.1 Hypertensive emergency; N17.9 Acute kidney failure, unspecified; I27.29 Other secondary pulmonary hypertension; I50.810 Right heart failure, unspecified; I12.9 Hypertensive chronic kidney disease with stage 1 through stage 4 chronic kidney disease, or unspecified chronic kidney disease; N18.30 Chronic kidney disease, stage 3 unspecified; I07.1 Rheumatic tricuspid insufficiency; E66.9 Obesity, unspecified; Z68.39 Body mass index [BMI] 39.0-39.9, adult; E87.5 Hyperkalemia; E78.5 Hyperlipidemia, unspecified; F41.9 Anxiety disorder, unspecified; K21.9 Gastro-esophageal reflux disease without esophagitis; Z79.899 Other long term (current) drug therapy; Z85.038 Personal history of other malignant neoplasm of large intestine; Z87.891 Personal history of nicotine dependence
CPT/HCPCS: 36415; 37211; 71046; 71275; 76770; 80048; 80053; 83735; 83880; 84484; 85025; 85379; 85384; 85610; 85730; 93005; 93306; 93970; 96365; 96366; 99291

== ENCOUNTER → 2023-12-04 | Outpatient (CLI) | payer MEDICARE, OTHER ==
[2023-12-04 11:58] LABS: African American GFR (CKD) 44 (>60 ml/min/1.73 sqM); Blood Urea Nitrogen 24 mg/dL (9-20); Non-African American GFR(CKD) 38 (>60 ml/min/1.73 sqM)
--- NOTE | 2023-12-04 12:45 | CT ---
EXAMINATION TYPE: CT angio chest DATE OF EXAM: 12/04/2023 12:24 PM COMPARISON: 10/04/2023 HISTORY: f/u PE CT DLP: 558.3 mGycm Automated exposure control for dose reduction was used. CONTRAST: CTA scan of the thorax is performed with IV Contrast, patient injected with 70cc mL of Isovue 370, pu lmonary embolism protocol. . FINDINGS: LUNGS: The lungs are grossly clear, there is no concerning parenchymal mass or nodule identified. T here is no pleural effusion or pneumothorax seen. The tracheobronchial tree is patent. There is a 1 mm pulmonary micronodule right middle lobe image 67 series 5. Has a benign appearance. MEDIASTINUM: There is satisfactory enhancement of the proximal pulmonary artery. Limited assessment o f the distal branches. There is interval near complete resolution of bilateral pulmonary embolism wit h no central pulmonary embolism. Tiny and distal residual embolism difficult to exclude. Is no CT meenakshi dence for pulmonary embolism. There is borderline hilar and mediastinal lymphadenopathy stable from prior exam possibly reactive. Trace pericardial effusion is seen. Aorta of normal caliber. Mild cardiomegaly. Mild to moderate mary nary artery calcifications. OTHER: Mild thickening of the adrenal gland likely the basis of benign adenoma or hyperplasia. Multi level mild degenerative disc disease. Borderline splenomegaly measuring 13 cm. Correlate for prior joyce rgery involving the bowel. IMPRESSION: 1. Marked interval improvement with near complete resolution of bilateral pulmonary embolism. Distal branches limited.
== END | disposition home or self-care (01) ==
LOC: RADCTMAIN 11:13
PROVIDERS: ATTEND Internal Medicine Critical Care Medicine
DX: I26.99 Other pulmonary embolism without acute cor pulmonale
CPT/HCPCS: 36415; 71275; 82565; 84520